=== PATIENT | male | born 2000 | race Caucasian/White ===

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

== ENCOUNTER 2021-03-11 20:55 | Emergency (ER) | payer OTHER ==
[2021-03-11] MEDS ORDERED: SODIUM CHLORIDE 0.9% 500 ML 500 ML IV STA (21:14)
--- NOTE | 2021-03-11 21:33 | ED ---
Seizure HPI - General Stated Complaint: seizure Time Seen by Provider: 03/11/21 20:59 Source: EMS Limitations: altered mental status (Appears postictal) - History of Present Illness Initial Comments: This patient is a 21-year-old man brought by ambulance to be evaluated after he reportedly had a seizure at [facility]. The patient reports that he was working tonight. He does not recall seizure. He states last seizure he had was approximately January 2020. Patient denies feeling like he had any injury. Not currently taking anticonvulsants. MD Complaint: seizure -: minutes(s) Description of Episode: tonic-clonic movement Witnessed: yes - by bystander Trauma: No Seizure History: other (2 previous seizures) Place: work Possible Precipitating Event: none Associated Symptoms: denies other symptoms Treatments Prior to Arrival: none - Related Data Home Medications Medication Instructions Recorded Confirmed No Known Home Medications 01/29/19 01/29/19 Allergies Allergy/AdvReac Type Severity Reaction Status Date / Time No Known Allergies Allergy Verified 03/11/21 22:38 Review of Systems ROS Statement: Those systems with pertinent positive or pertinent negative responses have been documented in the HPI. ROS Other: All systems not noted in ROS Statement are negative. Constitutional: Denies: fever, chills, weakness Eyes: Denies: eye pain, vision change ENT: Denies: epistaxis Respiratory: Denies: cough, dyspnea Cardiovascular: Denies: chest pain, palpitations, dyspnea on exertion Gastrointestinal: Denies: abdominal pain, nausea, vomiting Genitourinary: Denies: dysuria Musculoskeletal: Denies: back pain, arthralgia Skin: Denies: rash Neurological: Denies: headache, weakness, numbness, paresthesias Past Medical History Past Medical History: No Reported History Additional Past Medical History / Comment(s): denies History of Any Multi-Drug Resistant Organisms: None Reported Past Surgical History: No Surgical Hx Reported Past Psychological History: No Psychological Hx Reported Past Alcohol Use History: None Reported Past Drug Use History: None Reported General Exam General appearance: alert, in no apparent distress Head exam: Present: atraumatic, normocephalic Eye exam: Present: normal appearance, PERRL, EOMI. Absent: scleral icterus, conjunctival injection ENT exam: Present: normal oropharynx Neck exam: Present: normal inspection, full ROM. Absent: tenderness, meningismus Respiratory exam: Present: normal lung sounds bilaterally. Absent: respiratory distress, wheezes, rales, rhonchi, stridor, chest wall tenderness Cardiovascular Exam: Present: regular rate, normal rhythm, normal heart sounds. Absent: systolic murmur, diastolic murmur, rubs, gallop GI/Abdominal exam: Present: soft. Absent: distended, tenderness, guarding, rebound, rigid Extremities exam: Present: normal inspection, normal capillary refill. Absent: pedal edema, calf tenderness Back exam: Present: normal inspection. Absent: CVA tenderness (R), CVA tenderness (L), vertebral tenderness Neurological exam: Present: alert, oriented X3, CN II-XII intact. Absent: motor sensory deficit Skin exam: Present: warm, dry, intact, normal color. Absent: rash Course Vital Signs 03/11/21 20:55 Temperature 98.2 F Pulse Rate 86 Respiratory 18 Rate Blood Pressure 118/80 O2 Sat by Pulse 98 Oximetry Medical Decision Making - Lab Data Result diagrams: 03/11/21 21:39 03/11/21 21:39 Lab Results 03/11/21 03/11/21 Range/Units 21:39 21:39 WBC 6.5 (3.8-10.6) k/uL RBC 5.55 (4.30-5.90) m/uL Hgb 16.7 (13.0-17.5) gm/dL Hct 46.5 (39.0-53.0) % MCV 83.7 (80.0-100.0) fL MCH 30.0 (25.0-35.0) pg MCHC 35.9 (31.0-37.0) g/dL RDW 11.8 (11.5-15.5) % Plt Count 304 (150-450) k/uL MPV 6.9 Neutrophils % 60 % Lymphocytes % 28 % Monocytes % 8 % Eosinophils % 2 % Basophils % 1 % Neutrophils # 3.9 (1.3-7.7) k/uL Lymphocytes # 1.8 (1.0-4.8) k/uL Monocytes # 0.5 (0-1.0) k/uL Eosinophils # 0.1 (0-0.7) k/uL Basophils # 0.1 (0-0.2) k/uL Sodium 137 (137-145) mmol/L Potassium 5.1 (3.5-5.1) mmol/L Chloride 105 (98-107) mmol/L Carbon Dioxide 20 L (22-30) mmol/L Anion Gap 12 mmol/L BUN 17 (9-20) mg/dL Creatinine 0.90 (0.66-1.25) mg/dL Est GFR (CKD-EPI)AfAm >90 (>60 ml/min/1.73 sqM) Est GFR (CKD-EPI)NonAf >90 (>60 ml/min/1.73 sqM) Glucose 71 L (74-99) mg/dL Calcium 8.9 (8.4-10.2) mg/dL Total Bilirubin 1.3 (0.2-1.3) mg/dL AST 33 (17-59) U/L ALT 21 (4-49) U/L Alkaline Phosphatase 64 (38-126) U/L Total Protein 7.0 (6.3-8.2) g/dL Albumin 4.5 (3.5-5.0) g/dL Serum Alcohol <10 mg/dL Disposition Clinical Impression: Generalized seizure Disposition: HOME SELF-CARE Condition: Good Instructions (If sedation given, give patient instructions): Recurrent Seizures in Adults (ED) Is patient prescribed a controlled substance at d/c from ED?: No Referrals: None,Stated [Primary Care Provider] - 1-2 days Austin Conway MD [REFERRING] - 1-2 days
[2021-03-11 21:46] LABS: Basophils # (A) 0.1 k/uL (0-0.2); Basophils % (A) 1 %; Eosinophils # (A) 0.1 k/uL (0-0.7); Eosinophils % (A) 2 %; HCT 46.5 % (39.0-53.0); HGB 16.7 gm/dL (13.0-17.5); Lymphocytes # (A) 1.8 k/uL (1.0-4.8); Lymphocytes % (A) 28 %; MCHC 35.9 g/dL (31.0-37.0); MCV 83.7 fL (80.0-100.0); Mean Platelet Volume 6.9; Monocytes # (A) 0.5 k/uL (0-1.0); Monocytes % (A) 8 %; Neutrophils # (A) 3.9 k/uL (1.3-7.7); Neutrophils % (A) 60 %; Platelet Count 304 k/uL (150-450); RBC 5.55 m/uL (4.30-5.90); RDW 11.8 % (11.5-15.5); WBC 6.5 k/uL (3.8-10.6)
[2021-03-11 21:55] LABS: ALT 21 U/L (4-49); AST 33 U/L (17-59); African American GFR (CKD) >90 (>60 ml/min/1.73 sqM); Albumin 4.5 g/dL (3.5-5.0); Alcohol <10 mg/dL; Alkaline Phosphatase 64 U/L (38-126); Anion Gap 12 mmol/L; Blood Urea Nitrogen 17 mg/dL (9-20); Calcium 8.9 mg/dL (8.4-10.2); Carbon Dioxide 20 mmol/L (22-30); Chloride 105 mmol/L (98-107); Glucose 71 mg/dL (74-99); Non-African American GFR(CKD) >90 (>60 ml/min/1.73 sqM); Sodium 137 mmol/L (137-145); Total Bilirubin 1.3 mg/dL (0.2-1.3)
[2021-03-11 21:57] LABS: Potassium 5.1 mmol/L (3.5-5.1)
[2021-03-11 22:37] VITALS: RESP 18; TEMP 98.2
[2021-03-11 23:46] VITALS: BP 120/77; PULSE 80
== END 2021-03-11 23:46 | disposition home or self-care (01) ==
LOC: EC 20:55
DX: R56.9 Unspecified convulsions (principal)
CPT/HCPCS: 36415; 80053; 85025; 99285; 96360; G0480; 80320

== ENCOUNTER 2021-07-08 21:59 | Inpatient (IN) | payer OTHER ==
[2021-07-08 22:18] LABS: Glucose,Whole Blood 67 mg/dL (75-99)
[2021-07-08] MEDS ORDERED: DIPH,PERTUS(ACELL)TETVAC-LF 0.5 ML VIAL IM ONE (22:53)
[2021-07-08] MEDS ORDERED: SODIUM CHLORIDE 0.9% 1,000 ML IV STA (22:53)
[2021-07-08 23:11] LABS: Basophils % (A) 0 %; Eosinophils # (A) 0.1 k/uL (0-0.7); Eosinophils % (A) 2 %; HCT 53.8 % (39.0-53.0); Lymphocytes # (A) 2.4 k/uL (1.0-4.8); Lymphocytes % (A) 35 %; MCH 29.6 pg (25.0-35.0); MCHC 33.6 g/dL (31.0-37.0); MCV 88.1 fL (80.0-100.0); Mean Platelet Volume 7.2; Monocytes # (A) 0.5 k/uL (0-1.0); Monocytes % (A) 7 %; Neutrophils # (A) 3.6 k/uL (1.3-7.7); Neutrophils % (A) 54 %; Platelet Count 311 k/uL (150-450); RDW 12.6 % (11.5-15.5); WBC 6.7 k/uL (3.8-10.6)
[2021-07-08 23:21] LABS: ALT 20 U/L (4-49); AST 30 U/L (17-59); African American GFR (CKD) >90 (>60 ml/min/1.73 sqM); Albumin 4.9 g/dL (3.5-5.0); Alkaline Phosphatase 68 U/L (38-126); Anion Gap 15 mmol/L; Blood Urea Nitrogen 10 mg/dL (9-20); Calcium 9.7 mg/dL (8.4-10.2); Carbon Dioxide 19 mmol/L (22-30); Chloride 102 mmol/L (98-107); Glucose 66 mg/dL (74-99); Non-African American GFR(CKD) >90 (>60 ml/min/1.73 sqM); Sodium 136 mmol/L (137-145); Total Bilirubin 0.8 mg/dL (0.2-1.3); Total Protein 7.2 g/dL (6.3-8.2)
--- NOTE | 2021-07-08 23:25 | CT ---
EXAMINATION TYPE: CT brain wo con DATE OF EXAM: 07/08/2021 COMPARISON: 01/29/2019 HISTORY: Seizure CT DLP: 1165.40 mGycm Automated exposure control for dose reduction was used. Ventricles have normal size. There is no mass effect nor midline shift. There is no sign of intracran ial hemorrhage. Calvarium is intact. There is no evidence of cerebral edema. Skull base is intact. Th ere is some debris in the external auditory canals bilaterally. IMPRESSION: Negative CT scan of the brain. Brain not changed compared to old exam.
[2021-07-08 23:26] LABS: Potassium 4.9 mmol/L (3.5-5.1)
[2021-07-08 23:57] LABS: Appearance,Urine Clear (Clear); Bilirubin,Urine Negative (Negative); Blood,Urine Negative (Negative); Color,Urine Colorless; Glucose,Urine (UA) Negative (Negative); Ketones,Urine Negative (Negative); Leukocyte Esterase,Urine Negative (Negative); Nitrite,Urine Negative (Negative); PH, Urine 6.5 (5.0-8.0); Protein,Urine Negative (Negative); Specific Gravity,Urine 1.004 (1.001-1.035); Urobilinogen,Urine <2.0 mg/dL (<2.0)
[2021-07-09] MEDS ORDERED: LORazepam 2 MG/ML INJ IV STA (00:39)
[2021-07-09 00:44] LABS: Glucose,Whole Blood 104 mg/dL (75-99)
[2021-07-09] MEDS ORDERED: NALOXONE 0.4 MG/ML 1 ML VIAL IV PRN (00:47)
[2021-07-09] MEDS ORDERED: LORazepam 2 MG/ML INJ IV PRN (00:49)
--- NOTE | 2021-07-09 00:51 | ED ---
Seizure HPI - General Chief Complaint: Seizure Stated Complaint: Seizure Time Seen by Provider: 07/08/21 22:15 Source: patient, EMS Mode of arrival: EMS Limitations: no limitations - History of Present Illness Initial Comments: 21 year-old male patient presents to the emergency department for evaluation after having a seizure while at work. Patient does have history of seizures. First was in 2019. Mother who is also legal guardian states that he has had 3 seizures in the last 5 months. States he has been worked up for seizures at [facility] and they were unable to find a cause. He is not on any seizure medication. Patient was at work tonight in no unusual distress when he fell and started seizing. Bystanders state that it lasted about one minute. Patient denies loss of bowel or bladder control. He did bite his tongue and his lip. States he is having pain and swelling to the left side of his head where he hit it during the fall. Denies any blurred or double vision. Denies numbness, tingling, or weakness to his extremities. He denies any aura before onset of seizure. Patient denies any recent rash, fever, chills, cough, shortness of breath, chest pain, abdominal pain, nausea, vomiting, diarrhea, constipation, back pain, numbness, tingling, hematuria, dysuria, urinary urgency, urinary frequency, or any other complaints. - Related Data Home Medications Medication Instructions Recorded Confirmed No Known Home Medications 01/29/19 01/29/19 Allergies Allergy/AdvReac Type Severity Reaction Status Date / Time No Known Allergies Allergy Verified 07/08/21 22:25 Review of Systems ROS Statement: Those systems with pertinent positive or pertinent negative responses have been documented in the HPI. ROS Other: All systems not noted in ROS Statement are negative. Past Medical History Past Medical History: No Reported History Additional Past Medical History / Comment(s): denies, 3 seizures since 03/21 History of Any Multi-Drug Resistant Organisms: None Reported Past Surgical History: No Surgical Hx Reported Past Psychological History: No Psychological Hx Reported Smoking Status: Never smoker Past Alcohol Use History: None Reported Past Drug Use History: Marijuana General Exam Limitations: no limitations General appearance: alert, in no apparent distress, other (Physical well- developed, well-nourished adult male patient in no acute distress. Vital signs upon presentation are temperature 97.5F, pulse 100, respirations 16, blood pressure 137/91, pulse ox 96% on room air.) Eye exam: Present: normal appearance, PERRL, EOMI. Absent: scleral icterus, conjunctival injection, nystagmus, periorbital swelling ENT exam: Present: mucous membranes moist, other (Swelling and wounds to time. Puncture wound noted to the left upper lip.) Respiratory exam: Present: normal lung sounds bilaterally. Absent: respiratory distress, wheezes, rales, rhonchi, stridor Cardiovascular Exam: Present: regular rate, normal rhythm, normal heart sounds. Absent: systolic murmur, diastolic murmur, rubs, gallop, clicks GI/Abdominal exam: Present: soft, normal bowel sounds. Absent: distended, tenderness, guarding, rebound, rigid Neurological exam: Present: alert, oriented X3, CN II-XII intact Psychiatric exam: Present: normal affect, normal mood Skin exam: Present: warm, dry, intact, normal color. Absent: rash Course Vital Signs 07/08/21 07/09/21 22:25 00:38 Temperature 97.5 F L Pulse Rate 100 114 H Respiratory 16 18 Rate Blood Pressure 137/91 160/89 O2 Sat by Pulse 96 94 L Oximetry Medical Decision Making - Medical Decision Making 21-year-old male patient presents to the emergency department today for evaluation of seizures. Physical examination did reveal tongue injury and puncture wound to the left upper lip. He is neurologically intact. Labs reviewed and did reveal elevated hemoglobin 18.0. Sodium 136, carbon dioxide 19. Blood sugar was low at 66. Urinalysis was negative. CT brain was obtained and was negative. Patient did have another seizure here witnessed by staff, lasting about one minute. Did again bite his tongue. He was given 2mg ativan. Mother is quite distressed. Concerned because he has had full evaluation and no cause for his seizures has been found. She does not feel comfortable taking him home. He will be admitted for further monitoring and evaluation. Did start Keppra. Patient and mother are agreeable with this plan. (Mother provided info regarding his epileptic specialist at [facility] - Dr. Carline Arechiga, /[phone]). My attending is Dr. Murillo. - Lab Data Result diagrams: 07/08/21 22:59 07/08/21 22:59 Lab Results 07/08/21 07/08/21 07/08/21 Range/Units 22:16 22:59 22:59 WBC 6.7 (3.8-10.6) k/uL RBC 6.10 H (4.30-5.90) m/uL Hgb 18.0 H (13.0-17.5) gm/dL Hct 53.8 H (39.0-53.0) % MCV 88.1 (80.0-100.0) fL MCH 29.6 (25.0-35.0) pg MCHC 33.6 (31.0-37.0) g/dL RDW 12.6 (11.5-15.5) % Plt Count 311 (150-450) k/uL MPV 7.2 Neutrophils % 54 % Lymphocytes % 35 % Monocytes % 7 % Eosinophils % 2 % Basophils % 0 % Neutrophils # 3.6 (1.3-7.7) k/uL Lymphocytes # 2.4 (1.0-4.8) k/uL Monocytes # 0.5 (0-1.0) k/uL Eosinophils # 0.1 (0-0.7) k/uL Basophils # 0.0 (0-0.2) k/uL Sodium 136 L (137-145) mmol/L Potassium 4.9 (3.5-5.1) mmol/L Chloride 102 (98-107) mmol/L Carbon Dioxide 19 L (22-30) mmol/L Anion Gap 15 mmol/L BUN 10 (9-20) mg/dL Creatinine 0.88 (0.66-1.25) mg/dL Est GFR (CKD-EPI)AfAm >90 (>60 ml/min/1.73 sqM) Est GFR (CKD-EPI)NonAf >90 (>60 ml/min/1.73 sqM) Glucose 66 L (74-99) mg/dL POC Glucose (mg/dL) 67 L (75-99) mg/dL POC Glu Team Coordinator ID Jenae Taveras Calcium 9.7 (8.4-10.2) mg/dL Total Bilirubin 0.8 (0.2-1.3) mg/dL AST 30 (17-59) U/L ALT 20 (4-49) U/L Alkaline Phosphatase 68 (38-126) U/L Total Protein 7.2 (6.3-8.2) g/dL Albumin 4.9 (3.5-5.0) g/dL Urine Color Urine Appearance (Clear) Urine pH (5.0-8.0) Ur Specific [place] (1.001-1.035) Urine Protein (Negative) Urine Glucose (UA) (Negative) Urine Ketones (Negative) Urine Blood (Negative) Urine Nitrite (Negative) Urine Bilirubin (Negative) Urine Urobilinogen (<2.0) mg/dL Ur Leukocyte Esterase (Negative) 07/08/21 Range/Units 23:50 WBC (3.8-10.6) k/uL RBC (4.30-5.90) m/uL Hgb (13.0-17.5) gm/dL Hct (39.0-53.0) % MCV (80.0-100.0) fL MCH (25.0-35.0) pg MCHC (31.0-37.0) g/dL RDW (11.5-15.5) % Plt Count (150-450) k/uL MPV Neutrophils % % Lymphocytes % % Monocytes % % Eosinophils % % Basophils % % Neutrophils # (1.3-7.7) k/uL Lymphocytes # (1.0-4.8) k/uL Monocytes # (0-1.0) k/uL Eosinophils # (0-0.7) k/uL Basophils # (0-0.2) k/uL Sodium (137-145) mmol/L Potassium (3.5-5.1) mmol/L Chloride (98-107) mmol/L Carbon Dioxide (22-30) mmol/L Anion Gap mmol/L BUN (9-20) mg/dL Creatinine (0.66-1.25) mg/dL Est GFR (CKD-EPI)AfAm (>60 ml/min/1.73 sqM) Est GFR (CKD-EPI)NonAf (>60 ml/min/1.73 sqM) Glucose (74-99) mg/dL POC Glucose (mg/dL) (75-99) mg/dL POC Glu Team Coordinator ID Calcium (8.4-10.2) mg/dL Total Bilirubin (0.2-1.3) mg/dL AST (17-59) U/L ALT (4-49) U/L Alkaline Phosphatase (38-126) U/L Total Protein (6.3-8.2) g/dL Albumin (3.5-5.0) g/dL Urine Color Colorless Urine Appearance Clear (Clear) Urine pH 6.5 (5.0-8.0) Ur Specific [place] 1.004 (1.001-1.035) Urine Protein Negative (Negative) Urine Glucose (UA) Negative (Negative) Urine Ketones Negative (Negative) Urine Blood Negative (Negative) Urine Nitrite Negative (Negative) Urine Bilirubin Negative (Negative) Urine Urobilinogen <2.0 (<2.0) mg/dL Ur Leukocyte Esterase Negative (Negative) - EKG Data -: EKG Interpreted by [place] EKG Comments: EKG obtained at 2224 shows normal sinus rhythm with a ventricular rate of 99, ID interval 132, QRS duration 86, QT 338, QTC 433. No evidence of ST elevation or depression - Radiology Data Radiology results: report reviewed, image reviewed CT brain without contrast was obtained. Report was reviewed in its entirety. Impression by Dr. Patiño shows negative computed tomography scan of the brain. Brain not changed compared to old exam. Disposition Clinical Impression: Seizure, Recurrent seizures Disposition: ADMITTED IP TO THIS [facility] Condition: Serious Decision to Admit Reason: Admit from EC Decision Date: 07/09/21 Decision Time: 00:50
[2021-07-09] MEDS ORDERED: levETIRAcetam IV 1,500 MG in SALINE 1 100ML.BAG IVPB STA (01:31)
[2021-07-09 01:56] LABS: Amphetamine Screen,Urine Not Detected (NotDetected); Barbiturate Screen,Urine Not Detected (NotDetected); Benzodiazepines Screen,Urine Not Detected (NotDetected); Cocaine Screen,Urine Not Detected (NotDetected); Methadone Screen, Urine Not Detected (NotDetected); Opiate Screen,Urine Not Detected (NotDetected); Oxycodone Screen, Urine Not Detected (NotDetected); Phencyclidine Screen,Urine Not Detected (NotDetected); Tricyclic Antidepressant,Urine Not Detected (NotDetected)
[2021-07-09 01:57] LABS: Urn Cannabinoid Scrn Detected (NotDetected)
[2021-07-09] MEDS: SODIUM CHLORIDE 0.9% 1,000 ML IV SCH ×2 (02:05→16:50)
[2021-07-09 09:35] VITALS: RESP 17
--- NOTE | 2021-07-09 11:41 | P.HPIM ---
History of Present Illness Patient is pleasant 21-year-old male came in for seizure patient was shopping and had a seizure-like activity fell on the face didn't lose consciousness did not lose bowel or bladder incontinence patient has significant facial, although did not require any sutures. Patient appears to have tongue biting as well. Patient apparently had a seizure here in the hospital as well. Patient is supposed to see a neurologist at [facility] for seizures. Patient was told that he doesn't have a seizure disorder in the past. Patient is presently not on any antiseizure medications. Patient denied any aura with a seizure. Patient doesn't have any signs or symptoms of sepsis at this time patient does have some anion gap probably secondary to lactic acidosis from seizure. Patient is presently receiving IV fluids and we will increase the IV fluid rate to 100. REVIEW OF SYSTEMS: CONSTITUTIONAL: No fever, no malaise, no fatigue. HEENT: No recent visual problems or hearing problems. Denied any sore throat. CARDIOVASCULAR: No chest pain, orthopnea, PND, no palpitations, no syncope. PULMONARY: No shortness of breath, no cough, no hemoptysis. GASTROINTESTINAL: No diarrhea, no nausea, no vomiting, no abdominal pain. NEUROLOGICAL: No headaches, no weakness, no numbness. HEMATOLOGICAL: Denies any bleeding or petechiae. GENITOURINARY: Denies any burning micturition, frequency, or urgency. MUSCULOSKELETAL/RHEUMATOLOGICAL: Denies any joint pain, swelling, or any muscle pain. ENDOCRINE: Denies any polyuria or polydipsia. The rest of the 14-point review of systems is negative. PHYSICAL EXAMINATION: GENERAL: The patient is alert and oriented x3, not in any acute distress. Well developed, well nourished. HEENT: Pupils are round and equally reacting to light. EOMI. No scleral icterus. No conjunctival pallor. Normocephalic, patient does have bruises on the nose and mouth and tongue biting. No pharyngeal erythema. No thyromegaly. CARDIOVASCULAR: S1 and S2 present. No murmurs, rubs, or gallops. PULMONARY: Chest is clear to auscultation, no wheezing or crackles. ABDOMEN: Soft, nontender, nondistended, normoactive bowel sounds. No palpable organomegaly. MUSCULOSKELETAL: No joint swelling or deformity. EXTREMITIES: No cyanosis, clubbing, or pedal edema. NEUROLOGICAL: Gross neurological examination did not reveal any focal deficits. SKIN: No rashes. Assessment and plan -Possible seizure: Neurology will evaluate the patient and patient is deciding Right this time EEG was ordered. Patient is on seizure precautions. -Anion gap metabolic acidosis probably lactic is doses I do not have any lactic acid level at this time since patient is receiving fluid or just continue IV fluids at this time -Mild hypovolemic hyponatremia -Elevated hemoglobin and hematocrit probably secondary to hemoconcentration patient was started on IV fluids as mentioned above which will be continued and we will increase IV fluid rate. After further evaluation by neurology and EEG patient probably can be discharged on antiseizure medications. DVT prophylaxis: Ambulation Past Medical History Past Medical History: No Reported History Additional Past Medical History / Comment(s): denies, 3 seizures since 03/21 History of Any Multi-Drug Resistant Organisms: None Reported Past Surgical History: No Surgical Hx Reported Past Psychological History: No Psychological Hx Reported Smoking Status: Never smoker Past Alcohol Use History: None Reported Past Drug Use History: Marijuana Medications and Allergies Home Medications Medication Instructions Recorded Confirmed Type No Known Home Medications 01/29/19 07/09/21 History Allergies Allergy/AdvReac Type Severity Reaction Status Date / Time No Known Allergies Allergy Verified 07/09/21 07:18 Physical Exam Vitals: Vital Signs Temp Pulse Pulse Resp BP BP Pulse Ox 07/09/21 08:00 78 17 07/09/21 07:00 98.6 F 78 17 105/63 98 07/09/21 02:23 98.5 F 83 14 107/65 96 07/09/21 01:47 98.2 F 80 18 126/89 100 07/09/21 00:38 114 H 18 160/89 94 L 07/08/21 22:25 97.5 F L 100 16 137/91 96 Intake and Output 07/08/21 07/09/21 07/09/21 22:59 06:59 14:59 Other: # Voids 1 Weight 58.513 kg 58.513 kg Results CBC & Chem 7: 07/08/21 22:59 07/08/21 22:59 Labs: Abnormal Lab Results - Last 24 Hours (Table) 07/08/21 07/08/21 07/08/21 Range/Units 22:16 22:59 22:59 RBC 6.10 H (4.30-5.90) m/uL Hgb 18.0 H (13.0-17.5) gm/dL Hct 53.8 H (39.0-53.0) % Sodium 136 L (137-145) mmol/L Carbon Dioxide 19 L (22-30) mmol/L Glucose 66 L (74-99) mg/dL POC Glucose (mg/dL) 67 L (75-99) mg/dL U Marijuana (THC) Screen (NotDetected) 07/09/21 07/09/21 Range/Units 00:42 01:24 RBC (4.30-5.90) m/uL Hgb (13.0-17.5) gm/dL Hct (39.0-53.0) % Sodium (137-145) mmol/L Carbon Dioxide (22-30) mmol/L Glucose (74-99) mg/dL POC Glucose (mg/dL) 104 H (75-99) mg/dL U Marijuana (THC) Screen Detected H (NotDetected) Thrombosis Risk Factor Assmnt - Choose All That Apply Any of the Below Risk Factors Present?: No Other Risk Factors: No Other congenital or acquired thrombophilia - If yes, enter type in comment: No Thrombosis Risk Factor Assessment Level: Very Low Risk
[2021-07-09] MEDS ORDERED: levETIRAcetam IV 1,000 MG in SALINE 1 100ML.BAG IVPB SCH (14:00)
--- NOTE | 2021-07-09 15:09 | EEG ---
ELECTROENCEPHALOGRAM REPORT DATE OF SERVICE: 07/09/2021 PREAMBLE: This is a 21-year-old male with seizure disorder. EEG FINDINGS: This is a 21 channel routine EEG recording in a patient utilizing 10/20 international system with referential bipolar montages. Background consists of well developed, well regulated, moderate voltage activity in 9 hertz alpha, intermixed with low-voltage fast frequency beta activity seen in bihemispheric region. Background is posterior dominant and seems to be reactive to eye opening and closing. Photic driving response was not seen. Some stage 2 sleep was seen with presence of vertex waves and sleep spindles. More deeper stages of sleep were not seen. No focal or generalized epileptiform activity was seen. IMPRESSION: This is a mildly abnormal EEG due to presence of excessive amount of fast frequency beta activity, which is suggestive of medication effect. No epileptiform activity was seen. If your suspicion for seizures is high, consider prolonged, sleep-deprived EEG. MMODL / IJN: [id number] /
--- NOTE | 2021-07-09 15:27 | P.CNNES ---
History of Present Illness Consult date: 07/09/21 Requesting physician: Razia Muñoz Reason for Consult: Multiple seizures History of Present Illness: Patient is a 21-year-old male came to the hospital yesterday at 10 PM by ambulance. According to EMS flow sheet, when they arrived, patient was laying supine on the ground following a seizure. Patient was alert but slightly postictal. Patient has history of seizures and does not take medication for them. 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 when he collapsed and began seizing. Bystanders stated the seizure lasted for approximately 1 minute. Patient did bite his tongue. Bleeding is controlled. Patient's upper lip is slightly swollen. Bystanders st ated patient struck his head when he fell. Patient denied any headache, neck or back pain. En-route to the hospital, patient was alert and answering questions appropriately. Patient's blood pressure was 161/99, pulse rate 111, respirations 16 and saturation 95% in GCS 15 at the scene. Patient states that he does remember putting the gallon of milk on the shelf and the next thing he remembers is waking up in the ambulance. Patient has history of seizure disorder, follows by Dr. Noland. Patient's previous MRI of the brain without contrast from 01/29/2019 showed no evidence of focal cortical dysplasia, no evidence of demyelinating disease and no MR evidence of mesial temporal sclerosis. Patient's blood test shows normal WBC, hemoglobin 18.0 platelets 311. Sodium 136 potassium 4.9, normal renal functions. Hepatic panel normal. UA negative, urine drug screen positive for marijuana. Patient states that his first seizure occurred on 01/31/2019. He underwent workup including EEG and was not placed on any seizure medication. His second seizure occurred in 2019 and was recommended prolonged EEG but never got scheduled. This is his third seizure. Denies any family history of epilepsy. Patient denies any history of head injury. He does smoke marijuana and takes CBD oil. Does not use any crack or heroin. Review of Systems Complains of soreness in the tongue, and lips. All other review of systems completely unremarkable. Past Medical History Past Medical History: No Reported History Additional Past Medical History / Comment(s): denies, 3 seizures since 03/21 History of Any Multi-Drug Resistant Organisms: None Reported Past Surgical History: No Surgical Hx Reported Past Psychological History: No Psychological Hx Reported Smoking Status: Never smoker Past Alcohol Use History: None Reported Past Drug Use History: Marijuana Medications and Allergies Home Medications Medication Instructions Recorded Confirmed Type No Known Home Medications 01/29/19 07/09/21 History Allergies Allergy/AdvReac Type Severity Reaction Status Date / Time No Known Allergies Allergy Verified 07/09/21 07:18 Physical Examination - Vital Signs Vital Signs: Vital Signs Temp Pulse Pulse Resp BP BP Pulse Ox 07/09/21 08:00 78 17 07/09/21 07:00 98.6 F 78 17 105/63 98 07/09/21 02:23 98.5 F 83 14 107/65 96 07/09/21 01:47 98.2 F 80 18 126/89 100 07/09/21 00:38 114 H 18 160/89 94 L 07/08/21 22:25 97.5 F L 100 16 137/91 96 Intake and Output 07/08/21 07/09/21 07/09/21 22:59 06:59 14:59 Other: # Voids 1 Weight 58.513 kg 58.513 kg Patient is a young male, in no acute distress. Patient is alert awake oriented to time place and person. Speech is mildly slurred because of oral trauma but no dysarthria and language functions are normal. Attention, concentration and fund of knowledge is adequate. On cranial examination, pupils are round and reacting to light, visual roberts are full on confrontation, extraocular muscles are intact with no nystagmus. Face is symmetric, tongue protrudes to the midline. Palatal elevation and sensation normal, hearing and shoulder shrug normal, facial sensation normal. On muscle strength testing, there is no pronator drift and the strength is normal in arms and legs distally and proximally. Deep tendon reflexes are 1+ and plantars downgoing. Sensory to touch is equal with no neglect. Cerebellar function showed no ataxia for [id number] testing. No dysdiadochokinesia. Tone and bulk of muscles normal. Gait normal. On general examination, there is no carotid bruit or murmur, S1-S2 audible. Abdomen is soft nontender. Chest is clear. Peripheral pulses are present. No edema. 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 Patient not on any antiepileptic medication. * Marijuana use. Plan: * EEG was performed which is normal. * Continue Keppra 500 mg twice a day. * Patient informed of [place] state law of no driving unless seizure free for 6 months, climbing ladders, operating dangerous machinery or unsupervised swimming. * Neurologically clear. May follow up with his neurologist as outpatient.
[2021-07-09 15:50] VITALS: BP 126/70; PULSE 73; TEMP 98.3
[2021-07-09] MEDS ORDERED: levETIRAcetam 500 MG TAB PO SCH (21:00)
== END 2021-07-09 19:05 | disposition home or self-care (01) | DRG 101 ==
LOC: EC 21:59 → 6NMEDSUR 07-09 00:22 → OBSVTOIN 07-09 12:10
PROVIDERS: ADMIT Hospitalist; ATTEND Hospitalist
DX: G40.409 Other generalized epilepsy and epileptic syndromes, not intractable, without status epilepticus (principal); E87.1 Hypo-osmolality and hyponatremia; E87.2 Acidosis; E86.1 Hypovolemia; S01.531A Puncture wound without foreign body of lip, initial encounter; W18.39XA Other fall on same level, initial encounter; R40.2410 Glasgow coma scale score 13-15, unspecified time
CPT/HCPCS: 36415; 70450; 80053; 80306; 81003; 85025; 90471; 90715; 93005; 95816; 96361; 96374; 99285

== ENCOUNTER 2021-10-28 12:09 | Emergency (ER) | payer OTHER ==
[2021-10-28] MEDS ORDERED: levETIRAcetam IV 500 MG in SODIUM CHLORIDE 0.9% 100 ML IVPB STA (12:17)
--- NOTE | 2021-10-28 12:20 | ED ---
General Adult HPI - General Chief complaint: Seizure Stated complaint: seizure Time Seen by Provider: 10/28/21 12:11 Source: patient, EMS, RN notes reviewed Mode of arrival: EMS Limitations: no limitations - History of Present Illness Initial comments: Patient is a pleasant 21-year-old male presenting to the emergency department following reported seizure. Patient does have history of several previous seizures. Patient previously admitted to a pain however states he no longer rates. Patient states he is on Keppra, 500 mg once daily. Patient states he is feeling better at this time and feels normal. Patient does not feel confused. Patient did sustain a laceration to his lip. Patient denies any other head injury. No neck or back pain. No chest pain or dyspnea. No abdominal pain. Patient denies alcohol and street drug use. - Related Data Home Medications Medication Instructions Recorded Confirmed levETIRAcetam [Keppra] 500 mg PO DAILY@1200 10/28/21 10/28/21 Allergies Allergy/AdvReac Type Severity Reaction Status Date / Time No Known Allergies Allergy Verified 10/28/21 13:21 Review of Systems ROS Statement: Those systems with pertinent positive or pertinent negative responses have been documented in the HPI. ROS Other: All systems not noted in ROS Statement are negative. Constitutional: Denies: fever Eyes: Denies: eye pain ENT: Denies: ear pain Respiratory: Denies: cough Cardiovascular: Denies: chest pain Endocrine: Denies: fatigue Gastrointestinal: Denies: abdominal pain Genitourinary: Denies: dysuria Musculoskeletal: Denies: back pain Skin: Denies: rash Neurological: Denies: weakness, confusion Past Medical History Past Medical History: No Reported History Additional Past Medical History / Comment(s): denies, 3 seizures since 03/21 History of Any Multi-Drug Resistant Organisms: None Reported Past Surgical History: No Surgical Hx Reported Past Psychological History: No Psychological Hx Reported Smoking Status: Never smoker Past Alcohol Use History: None Reported Past Drug Use History: Marijuana General Exam Limitations: no limitations General appearance: alert, in no apparent distress Head exam: Present: atraumatic, normocephalic Eye exam: Present: normal appearance, PERRL, EOMI ENT exam: Present: other (Lip laceration. Anterior upper middle incisors both with distal tooth avulsions.) Neck exam: Present: normal inspection. Absent: tenderness Respiratory exam: Present: normal lung sounds bilaterally Cardiovascular Exam: Present: regular rate, normal rhythm GI/Abdominal exam: Present: soft. Absent: tenderness Extremities exam: Present: normal inspection, full ROM. Absent: tenderness Neurological exam: Present: alert, oriented X3, CN II-XII intact. Absent: motor sensory deficit Expanded Neurological exam: Present: protecting the airway Patient oriented to: Present: person, place, time Speech: Present: fluid speech Cranial nerves: EOM's Intact: Normal Motor strength exam: RUE: 5, LUE: 5, RLE: 5, LLE: 5 Eye Response: (4) open spontaneously Motor Response: (6) obeys commands Verbal Response: (5) oriented Psychiatric exam: Present: normal affect, normal mood Skin exam: Present: other (Right upper lip laceration) Course Vital Signs 10/28/21 10/28/21 10/28/21 12:11 12:21 13:07 Temperature 97.6 F Pulse Rate 121 H 84 Respiratory 18 16 Rate Blood Pressure 164/98 143/93 O2 Sat by Pulse 99 97 Oximetry EKG Findings - EKG Comments: EKG Findings:: Normal sinus rhythm with a rate of 93. WI 140. QRS 90. QT 358. QTC 445. Normal axis. Normal QRS. No acute ST change. Procedures - Laceration Laceration #1 Consent Obtained: verbal consent Indication: laceration Site: lip Size (cm): 2 Description: irregular Depth: simple, single layer Anesthetic Used: lidocaine 1% Amount (mls): 1 Pre-repair: wound explored, irrigated extensively Type of Sutures: nylon Size of Sutures: 5-0 Number of Sutures: 3 Technique: simple, interrupted Patient Tolerated Procedure: well, no complications Laceration #2 Consent Obtained: verbal consent Indication: laceration Site: lip (Inner lip) Size (cm): 2 Description: linear Anesthetic Used: lidocaine 1% Amount (mls): 1 Pre-repair: wound explored, irrigated extensively Type of Sutures: vicryl Size of Sutures: 5-0 Number of Sutures: 2 Technique: simple, interrupted Patient Tolerated Procedure: well, no complications Medical Decision Making - Medical Decision Making Patient remains alert and appropriate. Patient and now family is present and updated. - Lab Data Result diagrams: 10/28/21 12:22 10/28/21 12:22 Lab Results 10/28/21 10/28/21 Range/Units 12:22 12:22 WBC 7.8 (3.8-10.6) k/uL RBC 6.30 H (4.30-5.90) m/uL Hgb 18.2 H (13.0-17.5) gm/dL Hct 54.4 H (39.0-53.0) % MCV 86.3 (80.0-100.0) fL MCH 28.9 (25.0-35.0) pg MCHC 33.5 (31.0-37.0) g/dL RDW 12.0 (11.5-15.5) % Plt Count 358 (150-450) k/uL MPV 6.9 Neutrophils % 43 % Lymphocytes % 47 % Monocytes % 6 % Eosinophils % 2 % Basophils % 0 % Neutrophils # 3.3 (1.3-7.7) k/uL Lymphocytes # 3.7 (1.0-4.8) k/uL Monocytes # 0.5 (0-1.0) k/uL Eosinophils # 0.2 (0-0.7) k/uL Basophils # 0.0 (0-0.2) k/uL Sodium 137 (137-145) mmol/L Potassium 4.0 (3.5-5.1) mmol/L Chloride 102 (98-107) mmol/L Carbon Dioxide 16 L (22-30) mmol/L Anion Gap 19 mmol/L BUN 12 (9-20) mg/dL Creatinine 0.97 (0.66-1.25) mg/dL Est GFR (CKD-EPI)AfAm >90 (>60 ml/min/1.73 sqM) Est GFR (CKD-EPI)NonAf >90 (>60 ml/min/1.73 sqM) Glucose 151 H (74-99) mg/dL Calcium 9.9 (8.4-10.2) mg/dL Total Bilirubin 1.2 (0.2-1.3) mg/dL AST 33 (17-59) U/L ALT 36 (4-49) U/L Alkaline Phosphatase 72 (38-126) U/L Total Protein 7.9 (6.3-8.2) g/dL Albumin 5.1 H (3.5-5.0) g/dL Serum Alcohol <10 mg/dL - Radiology Data Radiology results: image reviewed (CT brain shows no acute hemorrhage or shift. Soft tissue thickening sphenoid and ethmoid possible retention cyst.) Disposition Clinical Impression: Generalized seizure, Lip laceration Disposition: HOME SELF-CARE Condition: Stable Instructions (If sedation given, give patient instructions): Seizure/Epilepsy Discharge Instructions & Follow-Up, Recurrent Seizures in Adults (ED), Laceration (ED) Additional Instructions: Please follow-up with neurologist and primary care physician in the next couple days for recheck. Increase Keppra level from the current single dose of 500 mg daily up to the new dose of 500 mg twice daily. Take medication approximately 12 hours apart. Suture removal for outer lip 6 days. 3 sutures. Inner lip sutures are dissolvable. Return for repeated seizures, change in mental status, worsening symptoms or any other concerns. Please also follow-up with dentist in the beginning of the week. Is patient prescribed a controlled substance at d/c from ED?: No Referrals: Stefan Hughes MD [STAFF PHYSICIAN] - 1-2 days Time of Disposition: 13:54
[2021-10-28 12:22] VITALS: TEMP 97.6
[2021-10-28] MEDS ORDERED: LIDOCAINE 1% INJ 10MG/ML (20 ML MDV) SQ ONE (12:23)
[2021-10-28 12:30] LABS: Basophils % (A) 0 %; Eosinophils # (A) 0.2 k/uL (0-0.7); Eosinophils % (A) 2 %; HCT 54.4 % (39.0-53.0); HGB 18.2 gm/dL (13.0-17.5); Lymphocytes # (A) 3.7 k/uL (1.0-4.8); Lymphocytes % (A) 47 %; MCH 28.9 pg (25.0-35.0); MCHC 33.5 g/dL (31.0-37.0); MCV 86.3 fL (80.0-100.0); Mean Platelet Volume 6.9; Monocytes # (A) 0.5 k/uL (0-1.0); Monocytes % (A) 6 %; Neutrophils # (A) 3.3 k/uL (1.3-7.7); Neutrophils % (A) 43 %; Platelet Count 358 k/uL (150-450); WBC 7.8 k/uL (3.8-10.6)
[2021-10-28 12:40] LABS: AST 33 U/L (17-59); African American GFR (CKD) >90 (>60 ml/min/1.73 sqM); Albumin 5.1 g/dL (3.5-5.0); Alcohol <10 mg/dL; Alkaline Phosphatase 72 U/L (38-126); Anion Gap 19 mmol/L; Blood Urea Nitrogen 12 mg/dL (9-20); Calcium 9.9 mg/dL (8.4-10.2); Carbon Dioxide 16 mmol/L (22-30); Chloride 102 mmol/L (98-107); Glucose 151 mg/dL (74-99); Non-African American GFR(CKD) >90 (>60 ml/min/1.73 sqM); Sodium 137 mmol/L (137-145); Total Bilirubin 1.2 mg/dL (0.2-1.3); Total Protein 7.9 g/dL (6.3-8.2)
[2021-10-28 12:45] LABS: ALT 36 U/L (4-49)
--- NOTE | 2021-10-28 12:49 | CT ---
EXAMINATION TYPE: CT brain wo con DATE OF EXAM: 10/28/2021 COMPARISON: 07/08/2021 HISTORY: seizure TECHNIQUE: CT scan of the head performed without contrast CT DLP: 1087.4 mGycm Automated exposure control for dose reduction was used. FINDINGS: No acute intracranial hemorrhage, midline shift or mass effect. Anderson-white matter differentiation is preserved. CSF spaces and ventricles are normal in configuration. Acute orbital, osseous or soft tissue abnormalities seen. Soft tissue thickening in the right sphenoid and right ethmoid air cells. The soft tissue thickening in the sphenoid sinus may represent a mucous retention cyst. No mastoid air cell effusion. IMPRESSION: 1. NO ACUTE INTRACRANIAL HEMORRHAGE MIDLINE SHIFT OR MASS EFFECT. NO SIGNIFICANT CHANGE SINCE PRIOR. 2. NEW SOFT TISSUE THICKENING IN THE RIGHT SPHENOID AND ETHMOID AIR CELLS, THE SPHENOID SINUS SOFT TI SSUE THICKENING MAY REPRESENT A MUCOSAL RETENTION CYST.
[2021-10-28 14:10] VITALS: BP 125/74; PULSE 85; RESP 18
== END 2021-10-28 14:30 | disposition home or self-care (01) ==
LOC: EC 12:09
DX: S01.511A Laceration without foreign body of lip, initial encounter (principal); G40.409 Other generalized epilepsy and epileptic syndromes, not intractable, without status epilepticus; Z79.899 Other long term (current) drug therapy; W18.39XA Other fall on same level, initial encounter; Y92.69 Other specified industrial and construction area as the place of occurrence of the external cause; Y99.0 Civilian activity done for income or pay
CPT/HCPCS: 93005; 80053; 80177; 85025; 70450; 99284; 96374; 12013; G0480; J2001; J1953; 80320

== ENCOUNTER 2022-08-12 15:57 | Emergency (ER) | payer OTHER ==
[2022-08-12 16:06] VITALS: RESP 16; TEMP 97.2
[2022-08-12] MEDS ORDERED: SODIUM CHLORIDE 0.9% 1,000 ML IV STA (16:09)
[2022-08-12] MEDS ORDERED: levETIRAcetam IV 1,000 MG in SALINE 1 100ML.BAG IVPB STA (16:23)
[2022-08-12 16:25] LABS: Basophils # (A) 0.1 k/uL (0-0.2); Basophils % (A) 2 %; Eosinophils # (A) 0.3 k/uL (0-0.7); Eosinophils % (A) 4 %; HCT 51.9 % (39.0-53.0); HGB 16.8 gm/dL (13.0-17.5); Lymphocytes # (A) 2.1 k/uL (1.0-4.8); Lymphocytes % (A) 30 %; MCH 28.2 pg (25.0-35.0); MCHC 32.3 g/dL (31.0-37.0); MCV 87.2 fL (80.0-100.0); Mean Platelet Volume 7.4; Monocytes # (A) 0.5 k/uL (0-1.0); Monocytes % (A) 7 %; Neutrophils # (A) 3.8 k/uL (1.3-7.7); Neutrophils % (A) 56 %; Platelet Count 284 k/uL (150-450); RBC 5.95 m/uL (4.30-5.90); WBC 6.9 k/uL (3.8-10.6)
--- NOTE | 2022-08-12 16:26 | ED ---
General Adult HPI - General Chief complaint: Seizure Stated complaint: Seizure Time Seen by Provider: 08/12/22 16:09 Source: patient, EMS Mode of arrival: EMS Limitations: no limitations - History of Present Illness Initial comments: Dictation was produced using [email or web address] dictation software. please excuse any grammatical, word or spelling errors. 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 He was at work when all of a sudden he was told that he had a seizure. Patient has a history of seizure disorder takes Keppra on a regular basis. He does not have established care with a neurologist in this area. Patient has not had a seizure for approximately one year. Patient states he scraped his elbow. At the bedside he has no complaints. Patient has been compliant with medications. Denies any recent complaints of feeling ill. The ROS documented in this emergency department record has been reviewed and confirmed by me. Those systems with pertinent positive or negative responses have been documented in the HPI. All other systems are other negative and/or noncontributory. PHYSICAL EXAM: General Impression: Alert and oriented x3, not in acute distress HEENT: Normocephalic atraumatic, extra-ocular movements intact, pupils equal and reactive to light bilaterally, mucous membranes moist. Cardiovascular: Heart regular rate and rhythm Chest: Able to complete full sentences, no retractions, no tachypnea Abdomen: abdomen soft, non-tender, non-distended, no organomegaly Musculoskeletal: Pulses present and equal in all extremities, no peripheral edema Motor: no focal deficits noted Neurological: CN II-XII grossly intact, no focal motor or sensory deficits noted Skin: Intact with no visualized rashes Psych: Normal affect and mood ED course: 22-year-old male with past medical history of seizure disorder presents to the emergency department for breakthrough seizure. Vital signs upon arrival are within acceptable limits. Patient's well-appearing at the bedside. EKG interpretation: Ventricular rate 94, sinus rhythm, [place] interval 139, QS 90, QTC 40. No [place] prolongation, no QTC prolongation, no ST or T-wave changes noted. Overall, this EKG is unremarkable It is unclear if patient had a postictal state. He was given patient's history of present illness patient did have a seizure given his medical history. Elisha mccormick evaluation obtained. CBC unremarkable. Metabolic panel shows mild acidosis is likely reflect that patient did in fact have a seizure. Patient given 1 g of Keppra. He is observed in the emergency department for approximately one hour. Reevaluated bedside at 5:00 FR be stable medical condition. Patient stable for discharge. She counseled on health hygiene to prevent further seizures. Advised follow-up with seizure specialist. Patient given outpatient referrals to local neurologist. - Related Data Home Medications Medication Instructions Recorded Confirmed levETIRAcetam [Keppra] 500 mg PO DAILY@1200 10/28/21 10/28/21 Allergies Allergy/AdvReac Type Severity Reaction Status Date / Time No Known Allergies Allergy Verified 10/28/21 13:21 Review of Systems ROS Statement: Those systems with pertinent positive or pertinent negative responses have been documented in the HPI. ROS Other: All systems not noted in ROS Statement are negative. Past Medical History Past Medical History: No Reported History Additional Past Medical History / Comment(s): denies, 3 seizures since 03/21 History of Any Multi-Drug Resistant Organisms: None Reported Past Surgical History: No Surgical Hx Reported Past Psychological History: No Psychological Hx Reported Smoking Status: Never smoker Past Alcohol Use History: None Reported Past Drug Use History: Marijuana General Exam Limitations: no limitations Course Vital Signs 08/12/22 16:03 Temperature 97.2 F L Pulse Rate 82 Respiratory 16 Rate Blood Pressure 120/71 O2 Sat by Pulse 95 Oximetry Medical Decision Making - Lab Data Result diagrams: 08/12/22 16:17 08/12/22 16:17 Lab Results 08/12/22 08/12/22 Range/Units 16:17 16:17 WBC 6.9 (3.8-10.6) k/uL RBC 5.95 H (4.30-5.90) m/uL Hgb 16.8 (13.0-17.5) gm/dL Hct 51.9 (39.0-53.0) % MCV 87.2 (80.0-100.0) fL MCH 28.2 (25.0-35.0) pg MCHC 32.3 (31.0-37.0) g/dL RDW 12.0 (11.5-15.5) % Plt Count 284 (150-450) k/uL MPV 7.4 Neutrophils % 56 % Lymphocytes % 30 % Monocytes % 7 % Eosinophils % 4 % Basophils % 2 % Neutrophils # 3.8 (1.3-7.7) k/uL Lymphocytes # 2.1 (1.0-4.8) k/uL Monocytes # 0.5 (0-1.0) k/uL Eosinophils # 0.3 (0-0.7) k/uL Basophils # 0.1 (0-0.2) k/uL Sodium 138 (137-145) mmol/L Potassium 4.5 (3.5-5.1) mmol/L Chloride 103 (98-107) mmol/L Carbon Dioxide 18 L (22-30) mmol/L Anion Gap 17 mmol/L BUN 16 (9-20) mg/dL Creatinine 0.84 (0.66-1.25) mg/dL Est GFR (CKD-EPI)AfAm >90 (>60 ml/min/1.73 sqM) Est GFR (CKD-EPI)NonAf >90 (>60 ml/min/1.73 sqM) Glucose 77 (74-99) mg/dL Calcium 9.4 (8.4-10.2) mg/dL Magnesium 2.0 (1.6-2.3) mg/dL Disposition Clinical Impression: Recurrent seizures Disposition: HOME SELF-CARE Condition: Good Instructions (If sedation given, give patient instructions): Recurrent Seizures in Adults (ED) Is patient prescribed a controlled substance at d/c from ED?: No Referrals: Filipe Gregorio MD [STAFF PHYSICIAN] - 1-2 days Evelyne Cuevas MD [Medical Doctor] - 1-2 days Time of Disposition: 17:06
[2022-08-12 16:43] LABS: African American GFR (CKD) >90 (>60 ml/min/1.73 sqM); Anion Gap 17 mmol/L; Blood Urea Nitrogen 16 mg/dL (9-20); Calcium 9.4 mg/dL (8.4-10.2); Carbon Dioxide 18 mmol/L (22-30); Chloride 103 mmol/L (98-107); Glucose 77 mg/dL (74-99); Non-African American GFR(CKD) >90 (>60 ml/min/1.73 sqM); Sodium 138 mmol/L (137-145)
[2022-08-12 16:58] LABS: Potassium 4.5 mmol/L (3.5-5.1)
[2022-08-12 17:35] VITALS: BP 124/71; PULSE 64
== END 2022-08-12 17:35 | disposition home or self-care (01) ==
LOC: EC 15:57
DX: R56.9 Unspecified convulsions (principal); F12.90 Cannabis use, unspecified, uncomplicated
CPT/HCPCS: 36415; 93005; 80048; 83735; 85025; 99284; 96365; 96361; J1953

== ENCOUNTER 2023-07-30 19:21 | Emergency (ER) | payer OTHER ==
[2023-07-30 19:28] VITALS: BP 139/85; PULSE 99; RESP 18; TEMP 98.4
--- NOTE | 2023-07-30 19:49 | ED ---
Seizure HPI - General Chief Complaint: Seizure Stated Complaint: Seizure Time Seen by Provider: 07/30/23 19:25 Source: patient, EMS Mode of arrival: EMS Limitations: no limitations - History of Present Illness Initial Comments: 23-year-old male with past medical history of seizure disorder presents to the emergency department with a seizure. States that he does have a history of seizure disorder for which she takes Keppra 500 mg twice daily. This is managed by his primary care doctor. He does not follow with a neurologist. Last seizure was in October 2022. States that he was at work today when he had the seizure. He does not remember it. Did not have any prodromal symptoms. He took his medication around 1 PM which is his normal time to take his Keppra. Denies any missed doses. The seizure was witnessed and lasted for approximately 1 minute. He did have some abrasions noted to his left calf and right shoulder however did not hit his head. He denies any recent illnesses. Denies any nausea or vomiting. Denies any neck pain. No fevers. No other alleviating, precipitating or modifying factors - Related Data Home Medications Medication Instructions Recorded Confirmed levETIRAcetam [Keppra] 500 mg PO DAILY@1200 10/28/21 10/28/21 Allergies Allergy/AdvReac Type Severity Reaction Status Date / Time No Known Allergies Allergy Verified 07/30/23 19:28 Review of Systems ROS Statement: Those systems with pertinent positive or pertinent negative responses have been documented in the HPI. ROS Other: All systems not noted in ROS Statement are negative. Past Medical History Past Medical History: No Reported History Additional Past Medical History / Comment(s): denies, 3 seizures since 03/21 History of Any Multi-Drug Resistant Organisms: None Reported Past Surgical History: No Surgical Hx Reported Past Psychological History: No Psychological Hx Reported Smoking Status: Never smoker Past Alcohol Use History: None Reported Past Drug Use History: Marijuana General Exam Limitations: no limitations General appearance: alert, in no apparent distress Head exam: Present: atraumatic, normocephalic, normal inspection Eye exam: Present: normal appearance, PERRL, EOMI. Absent: scleral icterus, conjunctival injection, periorbital swelling ENT exam: Present: normal exam, mucous membranes moist Neck exam: Present: normal inspection. Absent: tenderness, meningismus, lymphadenopathy Respiratory exam: Present: normal lung sounds bilaterally. Absent: respiratory distress, wheezes, rales, rhonchi, stridor Cardiovascular Exam: Present: regular rate, normal rhythm, normal heart sounds. Absent: systolic murmur, diastolic murmur, rubs, gallop, clicks GI/Abdominal exam: Present: soft, normal bowel sounds. Absent: distended, tenderness, guarding, rebound, rigid Extremities exam: Present: full ROM, normal capillary refill, other (Few abrasions noted to the left lateral calf). Absent: tenderness, pedal edema, joint swelling, calf tenderness Back exam: Present: normal inspection Neurological exam: Present: alert, oriented X3, CN II-XII intact Psychiatric exam: Present: normal affect, normal mood Skin exam: Present: warm, dry, intact, normal color. Absent: rash Course Vital Signs 07/30/23 19:22 Temperature 98.4 F Pulse Rate 99 Respiratory 18 Rate Blood Pressure 139/85 O2 Sat by Pulse 98 Oximetry Medical Decision Making - Medical Decision Making Was pt. sent in by a medical professional or institution (, PA, HEEL SEAT TRIMMER, urgent care, hospital, or residential...) When possible be specific @ -No Did you speak to anyone other than the patient for history (EMS, parent, family, police, friend...)? What history was obtained from this source @ -I spoke with EMS and the patient's father Did you review nursing and triage notes (agree or disagree)? Why? @ -I reviewed and agree with nursing and triage notes Were old charts reviewed (outside hosp., previous admission, EMS record, old EKG, old radiological studies, urgent care reports/EKG's, residential records)? Report findings @ -I reviewed an EEG from July 2021 Differential Diagnosis (chest pain, altered mental status, abdominal pain women, abdominal pain men, vaginal bleeding, weakness, fever, dyspnea, syncope, headache, dizziness, GI bleed, back pain, seizure, CVA, palpatations, mental health, musculoskeletal)? @ -Differential Seizure: Recurrent seizure disorder, febrile seizure, alcohol withdrawal, stimulants, meningitis, encephalitis, intercranial hemorrhage, intracranial tumor, stroke, eclampsia, thyrotoxicosis, hypocalcemia, hyponatremia, hypernatremia, hypomagnesemia, psychogenic, this is not meant to be an all-inclusive list. EKG interpreted by me (3pts min.). @ -Yes and demonstrates sinus tachycardia with a rate of 104. [place] interval 138. QRS 90. QTC 396. No acute ST segment elevations or depressions X-rays interpreted by me (1pt min.). @ -None done CT interpreted by me (1pt min.). @ -None done U/S interpreted by me (1pt. min.). @ -None done What testing was considered but not performed or refused? (CT, X-rays, U/S, labs)? Why? @ -None What meds were considered but not given or refused? Why? @ -I considered giving the patient a higher dose of his Keppra however he would like to go through his primary care doctor for medication adjustments Did you discuss the management of the patient with other professionals (professionals i.e. , PA, HEEL SEAT TRIMMER, lab, RT, psych nurse, social work manager, greige goods marker, teacher, biological technical officer, case filler)? Give summary @ -No Was smoking cessation discussed for >3mins.? @ -No Was critical care preformed (if so, how long)? @ -No Were there social determinants of health that impacted care today? How? (Homelessness, low income, unemployed, alcoholism, drug addiction, transportation, low edu. Level, literacy, decrease access to med. care, senior living, rehab)? @ -No Was there de-escalation of care discussed even if they declined (Discuss DNR or withdrawal of care, Hospice)? DNR status @ -No What co-morbidities impacted this encounter? (DM, HTN, Smoking, COPD, CAD, Cancer, CVA, ARF, Chemo, Hep., AIDS, mental health diagnosis, sleep apnea, morbid obesity)? @ -Seizure disorder Was patient admitted / discharged? Hospital course, mention meds given and route, prescriptions, significant lab abnormalities, going to OR and other pertinent info. @ -Upon arrival patient was placed into room 23. A thorough history and physical exam was performed. IV access was established and laboratory studies are conducted. The results are discussed with the patient. He does have a low glucose for which she was given juice and recommended that he eat. I did recommend increasing the patient's Keppra dose. I was willing to call neurology discuss this medication adjustment with them. Patient and his father at bedside would like the medication adjustment to go to their primary care doctor. States that they will call the primary care doctor in the morning to make this adjustments. He is instructed not to drive until seizure free for 6 months. Follow up with his primary care doctor in 2-4 days. Do recommend that he see a neurologist for his seizures. Return for any new or worsening symptoms. P atient was agreeable and discharged in stable condition Undiagnosed new problem with uncertain prognosis? @ -No Drug Therapy requiring intensive monitoring for toxicity (Heparin, Nitro, Insulin, Cardizem)? @ -No Were any procedures done? @ -No Diagnosis/symptom? @ -Acute breakthrough seizure, history of seizure disorder Acute, or Chronic, or Acute on Chronic? @ -Acute on chronic Uncomplicated (without systemic symptoms) or Complicated (systemic symptoms)? @ -Complicated Side effects of treatment? @ -No Exacerbation, Progression, or Severe Exacerbation? @ -No Poses a threat to life or bodily function? How? (Chest pain, [place], [place], pneumonia, PE, COPD, DKA, ARF, appy, cholecystitis, CVA, Diverticulitis, Homicidal, Suicidal, threat to staff... and all critical care pts) @ -No - Lab Data Result diagrams: 07/30/23 20:03 07/30/23 20:03 Lab Results 07/30/23 07/30/23 Range/Units 20:03 20:03 WBC 8.1 (3.8-10.6) k/uL RBC 5.97 H (4.30-5.90) m/uL Hgb 17.3 (13.0-17.5) gm/dL Hct 52.4 (39.0-53.0) % MCV 87.7 (80.0-100.0) fL MCH 29.0 (25.0-35.0) pg MCHC 33.0 (31.0-37.0) g/dL RDW 12.8 (11.5-15.5) % Plt Count 313 (150-450) k/uL MPV 7.3 Neutrophils % 59 % Lymphocytes % 28 % Monocytes % 7 % Eosinophils % 4 % Basophils % 0 % Neutrophils # 4.8 (1.3-7.7) k/uL Lymphocytes # 2.3 (1.0-4.8) k/uL Monocytes # 0.6 (0-1.0) k/uL Eosinophils # 0.3 (0-0.7) k/uL Basophils # 0.0 (0-0.2) k/uL Sodium 137 (137-145) mmol/L Potassium 4.1 (3.5-5.1) mmol/L Chloride 100 (98-107) mmol/L Carbon Dioxide 19 L (22-30) mmol/L Anion Gap 18 mmol/L BUN 19 (9-20) mg/dL Creatinine 1.03 (0.66-1.25) mg/dL Est GFR (CKD-EPI)AfAm >90 (>60 ml/min/1.73 sqM) Est GFR (CKD-EPI)NonAf >90 (>60 ml/min/1.73 sqM) Glucose 68 L (74-99) mg/dL Calcium 9.7 (8.4-10.2) mg/dL Magnesium 2.2 (1.6-2.3) mg/dL Total Bilirubin 1.1 (0.2-1.3) mg/dL AST 39 (17-59) U/L ALT 41 (4-49) U/L Alkaline Phosphatase 77 (38-126) U/L Total Protein 7.7 (6.3-8.2) g/dL Albumin 5.1 H (3.5-5.0) g/dL Disposition Clinical Impression: Seizure, Hypoglycemia Disposition: HOME SELF-CARE Condition: Stable Instructions (If sedation given, give patient instructions): Recurrent Seizures in Adults (ED) Additional Instructions: Please call your primary care doctor and discuss medication adjustments. No driving. Return for any new or worsening symptoms Is patient prescribed a controlled substance at d/c from ED?: No Referrals: Emigdio Hughes MD [Primary Care Provider] - 1-2 days Time of Disposition: 20:53
[2023-07-30] MEDS ORDERED: SODIUM CHLORIDE 0.9% 1,000 ML IV STA (20:02)
[2023-07-30 20:46] LABS: Basophils % (A) 0 %; Eosinophils # (A) 0.3 k/uL (0-0.7); Eosinophils % (A) 4 %; HCT 52.4 % (39.0-53.0); HGB 17.3 gm/dL (13.0-17.5); Lymphocytes # (A) 2.3 k/uL (1.0-4.8); Lymphocytes % (A) 28 %; MCV 87.7 fL (80.0-100.0); Mean Platelet Volume 7.3; Monocytes # (A) 0.6 k/uL (0-1.0); Monocytes % (A) 7 %; Neutrophils # (A) 4.8 k/uL (1.3-7.7); Neutrophils % (A) 59 %; Platelet Count 313 k/uL (150-450); RBC 5.97 m/uL (4.30-5.90); RDW 12.8 % (11.5-15.5); WBC 8.1 k/uL (3.8-10.6)
[2023-07-30 20:49] LABS: ALT 41 U/L (4-49); AST 39 U/L (17-59); African American GFR (CKD) >90 (>60 ml/min/1.73 sqM); Albumin 5.1 g/dL (3.5-5.0); Alkaline Phosphatase 77 U/L (38-126); Anion Gap 18 mmol/L; Blood Urea Nitrogen 19 mg/dL (9-20); Calcium 9.7 mg/dL (8.4-10.2); Carbon Dioxide 19 mmol/L (22-30); Chloride 100 mmol/L (98-107); Glucose 68 mg/dL (74-99); Magnesium 2.2 mg/dL (1.6-2.3); Non-African American GFR(CKD) >90 (>60 ml/min/1.73 sqM); Potassium 4.1 mmol/L (3.5-5.1); Sodium 137 mmol/L (137-145); Total Bilirubin 1.1 mg/dL (0.2-1.3); Total Protein 7.7 g/dL (6.3-8.2)
== END 2023-07-30 21:11 | disposition home or self-care (01) ==
LOC: EC 19:21
DX: S80.812A Abrasion, left lower leg, initial encounter (principal); G40.909 Epilepsy, unspecified, not intractable, without status epilepticus; E16.2 Hypoglycemia, unspecified; R00.0 Tachycardia, unspecified; F12.90 Cannabis use, unspecified, uncomplicated; Z79.899 Other long term (current) drug therapy; X58.XXXA Exposure to other specified factors, initial encounter
CPT/HCPCS: 36415; 80053; 83735; 85025; 93005; 96360; 99284